=== PATIENT | male | born 1970 | race Caucasian/White ===

== ENCOUNTER 2019-09-03 17:42 | Emergency (ER) | payer OTHER ==
[2019-09-03 17:57] VITALS: BP 140/92; PULSE 80; O2SAT 98
[2019-09-03] MEDS ORDERED: XYLOCAINE 1% HCL 20 ML MDV IJ ONE (18:05)
[2019-09-03] MEDS ORDERED: Adacel Vial IM ONE ×2 (18:05→18:10)
[2019-09-03] MEDS ORDERED: XYLOCAINE 1% HCL 20 ML MDV ONE (18:10)
--- NOTE | 2019-09-03 18:17 | ERPHSYRPT ---
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 pt denies any other injury or accident. pt reports use of blood thinners. Triage Nursing Assessment: pt is aox3, ambulatory to cot with no difficulties, pupils perrl, afebrile, resps easy and non labored, cap refill < 3 seconds, radial pulses strong and equal, pt skin pink warm dry. laceration noted to the volar left distal forearm, skin is well approximated, minimal serious drainage noted at time of arrival pt with pressure to wound. no debris noted to wound bed. pt sensation, ROM intact. 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 pt denies any other injury or accident. pt reports use of blood thinners. no deep tendon injury Timing/Duration: today Severity: mild Associated Symptoms: denies symptoms Allergies/Adverse Reactions: Penicillins Allergy (Intermediate, Verified 07/31/12 16:27) Hives Home Medications: Aspirin EC 81 mg [Ecotrin 81 mg] 81 mg PO DAILY 09/03/19 [History] Clopidogrel Bisulfate [Clopidogrel] 75 mg PO DAILY 09/03/19 [History] Ergocalciferol (Vitamin D2) [Vitamin D2] 1 each PO DAILY 09/03/19 [History] Irbesartan 150 mg PO DAILY 09/03/19 [History] Lansoprazole [Prevacid] 15 mg PO DAILY 09/03/19 [History] Memantine HCl/Donepezil HCl [Namzaric 28 mg-10 mg Capsule] 0 mg PO UD 09/03/19 [ History] Rosuvastatin Calcium [Crestor] 20 mg PO DAILY 09/03/19 [History] Sertraline HCl 50 mg [Zoloft 50 mg Tablet] 50 mg PO DAILY 09/03/19 [History] Tizanidine HCl 4 mg PO DAILY 09/03/19 [History] lisinopriL [Lisinopril] 10 mg PO DAILY 09/03/19 [History] Hx Tetanus, Diphtheria Vaccination/Date Given: (unk) Hx Influenza Vaccination/Date Given: No Hx Pneumococcal Vaccination/Date Given: No Immunizations Up to Date: Yes Travel Risk - International Travel Have you traveled outside of the country in past 3 weeks: No Have you or anyone close to you been diagnosed with or: No Do your reside in a community with a known COVID-19 case?: Yes If Yes where:: [facility] - Coronavirus Screening Has patient experienced Coronavirus symptoms: No - Review of Systems Constitutional: No Symptoms Eyes: No Symptoms Ears, Nose, & Throat: No Symptoms Respiratory: No Symptoms Cardiac: No Symptoms Abdominal/Gastrointestinal: No Symptoms Genitourinary Symptoms: No Symptoms Skin: Other (5 cms laceration on left forearm) - Past Medical History Pertinent Past Medical History: Yes Neurological History: Stroke ENT History: No Pertinent History Cardiac History: Coronary Artery Disease, Hypertension Respiratory History: No Pertinent History Endocrine Medical History: No Pertinent History Musculoskeletal History: Other GI Medical History: No Pertinent History History: No Pertinent History Psycho-Social History: No Pertinent History Male Reproductive Disorders: No Pertinent History Other Medical History: FREQUENT TINITUS (WHEN ALL IS QUIET); HAS CTS TO RIGHT HAND. CURRENTLY CAN'T CARRY ANYTHING HEAVY LEFT HANDED AND IF HE DOES FLEXOR TENDONS START HURTING TO INDEX, RING, AND MIDDLE FINGERS. WAKES AT NOC WITH LEFT HAND NUMBNESS (MOSTLY LITTLE, RING, AND MIDDLE FINGERS). CURRENTLY HE IS UNABLE TO LIFT HIS 100# SPECIAL NEEDS DAUGHTER, CAN'T HOLD STRAP OF LEASH FOR DOG WITH LEFT HAND BUT CAN WITH RIGHT HAND. RUNNING A CHAINSAW CAUSES EXCRUCIATING PAIN (DUE TO VIBRATION). DIFFICULTY WITH GRIPPING TASKS/ ACTIVITIES IT CAUSES PAIN AND TINGLING/NUMBNESS. ALSO PALM OF LEFT HAND IS EXTREMELY HYPERSENSITIVE - Past Surgical History Past Surgical History: No Neuro Surgical History: No Pertinent History Cardiac: No Pertinent History Respiratory: No Pertinent History Gastrointestinal: No Pertinent History Genitourinary: No Pertinent History Musculoskeletal: No Pertinent History Male Surgical History: No Pertinent History - Social History Smoking Status: Never smoker Drug Use: none Patient Lives Alone: No - Nursing Vital Signs Nursing Vital Signs: Initial Vital Signs Temperature 98 F 09/03/19 17:48 Pulse Rate 80 09/03/19 17:48 Respiratory Rate 18 09/03/19 17:48 Blood Pressure 140/92 09/03/19 17:48 O2 Sat by Pulse Oximetry 98 09/03/19 17:48 Pain Scale Pain Intensity 0 - Physical Exam General Appearance: no apparent distress Eye Exam: PERRL/EOMI Ears, Nose, Throat Exam: normal ENT inspection Neck Exam: normal inspection Extremity Exam: normal inspection Neurologic Exam: alert, oriented x 3 Skin Exam: normal color, laceration (5 cms on mid forearm ) SpO2: 98 Procedures - Laceration/Wound Repair Left Anterior Volar Other Wound Location: Left (forearm) Wound Length (cm): 5 Wound's Depth, Shape: superficial Wound Explored: clean Irrigated: Yes Hibiclens Prep: Yes Anesthesia: local, 1% Lidocaine Volume Anesthetic (ccs): 7 Wound Debrided: minimal Wound Repaired With: sutures Suture Size/Type: 4-0, nylon Number of Sutures: 5 Layer Closure?: No Sterile Dressing Applied?: Yes - Course Nursing assessment & vital signs reviewed: Yes Ordered Tests: Medication Summary Discontinued Medications Generic Name Dose Route Start Last Admin Trade Name Freq PRN Reason Stop Dose Admin Diphtheria/Tetanus/Acell Pertussis 0.5 ml 09/03/19 18:05 Adacel Vial IM 09/03/19 18:06 .ONCE ONE Lidocaine HCl 10 ml 09/03/19 18:05 Xylocaine 1% Hcl 20 Ml Mdv IJ 09/03/19 18:06 STAT ONE - Progress Progress: improved Counseled pt/family regarding: diagnosis, need for follow-up - Departure Departure Disposition: Home Clinical Impression: Laceration of left forearm without complication Qualifiers: Encounter type: initial encounter Qualified Code(s): S51.812A - Laceration without foreign body of left forearm, initial encounter Condition: Stable Critical Care Time: No Referrals: NIKOLAI OLMEDO DO [Primary Care Provider] - Instructions: Laceration Repair With Stitches (DC), Wound Care (DC) Additional Instructions: sutures removal in 10 days, wound check in 3 days. DANIALJUANJO ALONSO was seen on 09/03/19 n the Emergency Room. At that time you were treated for an emergent condition, during your visit Laboratory, Radiology and/or other procedures may have been ordered. It is very important that you follow-up with your Primary Care Physician NIKOLAI OLMEDO DO within the next 24-48 hours to review your Emergency Room visit and the final results of testing that was ordered. Some test results such as Urine Cultures, Blood Cultures, and other cultures if ordered will not be finalized for 24-48 hours. If you do not have a Primary Care Provider please call the medical records department at [phone] ext [phone] to obtain a copy of your results or you may sign into our patient portal to obtain these results by visiting us @ [email or web address] and completing the following steps: 1. Click on the Patient Portal link 2. Click the Patient Self Enrollment Link to complete the enrollment form and entering your 3. Once the enrollment form is completed you will receive an email with a temporary ID and password at the email address you provided. 4. Next choose a user name and password. Your user name must be at least 4 characters long and your password must be at least 4 characters long. 5. Choose a security question from the list and provide your answer to the question. If you already have signed into the Health Portal you may access your Health Care Information 15/12 by the following steps: 1. Login to our website @ [email or web address] 2. Enter your original user name and password. FAQS The [facility] Health Portal is an online tool that contains your Lab Results, Radiology Reports, Visit History, Discharge Instructions and Health Summary Lab and Radiology Results will not be available for 72 hours on the portal. The Portal is a secure site, passwords are encryted and URLs are re-written so they cannot be copied and pasted. You and authorized family members are the only ones who can access your Portal. Also there is a timeout feature that protects your information if you leave the Portal page open. If you have technical difficulty please use the Contact Us link on the page this will allow you to submit any questions you have regarding the Portal or you may contact the Medical Record Department at [phone] ext [phone].
== END 2019-09-03 18:23 | disposition home or self-care (01) ==
LOC: ED 17:42
DX: S51.812A Laceration without foreign body of left forearm, initial encounter (principal); Z79.899 Other long term (current) drug therapy
CPT/HCPCS: 12002; 90471; 90715; 96372; 99284

== ENCOUNTER 2020-11-04 19:53 | Emergency (ER) | payer OTHER ==
[2020-11-04] MEDS ORDERED: OXYCODONE-ACETAMINOPHEN 10-325 ONE ×2 (20:09→20:30)
[2020-11-04] MEDS ORDERED: OXYCODONE-ACETAMINOPHEN 10-325 PO STA ×2 (20:20→20:26)
--- NOTE | 2020-11-04 20:22 | ERPHSYRPT ---
- History of Present Illness Time Seen by Provider: 11/04/20 19:56 Source: patient Exam Limitations: no limitations Physician History: 58 years old male with history of hypertension, hyperlipidemia, previous strokes presented in the ER with chief complaint of left calf pain after he was pushing a 2000 pound tractor and felt a popping/snapping in the calf area followed by swelling and constant sharp shooting moderate intensity pain, worsening with ambulation/palpation and better with resting. No difficulty movements of the knee or ankle. Patient report he feels a golf ball in his calf. Not on any blood thinners. Method of Injury: other Occurred: just prior to arrival Quality: sharpness Severity of Pain-Max: moderate Severity of Pain-Current: moderate Lower Extremities Pain: leg: left Modifying Factors: Improves With: immobilization, rest. Worsens With: movement Associated Symptoms: snapping sensation, popping sensation Allergies/Adverse Reactions: Penicillins Allergy (Intermediate, Verified 11/04/20 19:57) Hives Home Medications: Clopidogrel Bisulfate [Clopidogrel] 75 mg PO DAILY 09/03/19 [History] Ergocalciferol (Vitamin D2) [Vitamin D2] 1 each PO DAILY 09/03/19 [History] Memantine HCl/Donepezil HCl [Namzaric 28 mg-10 mg Capsule] 0 mg PO UD 09/03/19 [History] Rosuvastatin Calcium [Crestor] 20 mg PO DAILY 09/03/19 [History] Sertraline HCl 50 mg [Zoloft 50 mg Tablet] 100 mg PO DAILY 09/03/19 [History] Tizanidine HCl 4 mg PO DAILY 09/03/19 [History] lisinopriL [Lisinopril] 10 mg PO DAILY 09/03/19 [History] Hx Tetanus, Diphtheria Vaccination/Date Given: (unk) Hx Influenza Vaccination/Date Given: No Hx Pneumococcal Vaccination/Date Given: No - Review of Systems Constitutional: No Symptoms Eyes: No Symptoms Ears, Nose, & Throat: No Symptoms Respiratory: No Symptoms Cardiac: No Symptoms Abdominal/Gastrointestinal: No Symptoms Genitourinary Symptoms: No Symptoms Musculoskeletal: Injury, Myalgias Skin: No Symptoms Neurological: No Symptoms Psychological: No Symptoms Endocrine: No Symptoms Hematologic/Lymphatic: No Symptoms Immunological/Allergic: No Symptoms - Past Medical History Pertinent Past Medical History: Yes Neurological History: Stroke ENT History: No Pertinent History Cardiac History: Coronary Artery Disease, Hypertension Respiratory History: No Pertinent History Endocrine Medical History: No Pertinent History Musculoskeletal History: Other GI Medical History: No Pertinent History History: No Pertinent History Psycho-Social History: No Pertinent History Male Reproductive Disorders: No Pertinent History Other Medical History: FREQUENT TINITUS (WHEN ALL IS QUIET); HAS CTS TO RIGHT HAND. CURRENTLY CAN'T CARRY ANYTHING HEAVY LEFT HANDED AND IF HE DOES FLEXOR TENDONS START HURTING TO INDEX, RING, AND MIDDLE FINGERS. WAKES AT NOC WITH LEFT HAND NUMBNESS (MOSTLY LITTLE, RING, AND MIDDLE FINGERS). CURRENTLY HE IS UNABLE TO LIFT HIS 100# SPECIAL NEEDS DAUGHTER, CAN'T HOLD STRAP OF LEASH FOR DOG WITH LEFT HAND BUT CAN WITH RIGHT HAND. RUNNING A CHAINSAW CAUSES EXCRUCIATING PAIN (DUE TO VIBRATION). DIFFICULTY WITH GRIPPING TASKS/ACTIVITIES IT CAUSES PAIN AND TINGLING/NUMBNESS. ALSO PALM OF LEFT HAND IS EXTREMELY HYPERSENSITIVE - Past Surgical History Past Surgical History: No Neuro Surgical History: No Pertinent History Cardiac: No Pertinent History Respiratory: No Pertinent History Gastrointestinal: No Pertinent History Genitourinary: No Pertinent History Musculoskeletal: No Pertinent History Male Surgical History: No Pertinent History - Social History Smoking Status: Never smoker Drug Use: none Patient Lives Alone: No - Physical Exam General Appearance: no apparent distress, alert Eyes, Ears, Nose, Throat Exam: normal ENT inspection Neck Exam: normal inspection, supple, full range of motion Cardiovascular/Respiratory Exam: normal breath sounds, regular rate/rhythm Hips Exam: bilateral: non-tender, normal inspection, normal range of motion, no evidence of injury Legs Exam: right leg: non-tender, normal inspection, left leg: pain, soft tissue tenderness, swelling (Mid calf swelling. Tender to palpation. Intact range of motion above and below and knee and ankle joint. Dorsalis pedis and posterior tibial well palpable. Cap refill less than 3 seconds), other (No bony tenderness), bilateral leg: normal range of motion, no evidence of injury Knees Exam: bilateral knee: non-tender, normal inspection, normal range of motion Ankle Exam: bilateral ankle: non-tender, normal inspection, normal range of motion, no evidence of injury Foot Exam: bilateral foot: non-tender, normal inspection, normal range of motion, no evidence of injury Neuro/Tendon Exam: normal sensation, normal motor functions Mental Status Exam: alert, oriented x 3, cooperative Skin Exam: normal color SpO2 Interpretation: normal SpO2: 96 O2 Delivery: Room Air Ordered Tests: Medication Summary Discontinued Medications Generic Name Dose Route Start Last Admin Trade Name Netta PRN Reason Stop Dose Admin Oxycodone/Acetaminophen Confirm 11/04/20 20:09 Oxycodone-Acetaminophen 10-325 Administered 11/04/20 20:10 Dose 1 tab .ROUTE .STK-MED ONE - Progress Progress: improved, pain not gone completely Progress Note: 11/04/20 20:20 He is given pain medication for symptomatic relief. I believe patient has gastrocnemius tendon rupture. Intact distal neurovascular. No bony tenderness. I do not have ultrasound services available, recommended transfer to facility with ultrasound services but patient does not want to go there. He is advised to follow-up with orthopedic surgery for reevaluation and possible surgical intervention. Recommending getting off of left leg as much possible. Discussed signs symptoms of worsening needing return to ER which he seems understanding Counseled pt/family regarding: diagnosis, need for follow-up - Departure Departure Disposition: Home Clinical Impression: Rupture of left gastrocnemius tendon Qualifiers: Encounter type: initial encounter Qualified Code(s): S86.112A - Strain of other muscle(s) and tendon(s) of posterior muscle group at lower leg level, left leg, initial encounter Condition: Stable Critical Care Time: No Referrals: NIKOLAI OLMEDO DO [Primary Care Provider] - Follow Up with PCP/3 days ESTHER TAMEZ [NON-STAFF PHY W/O PRIVILEGES] - (Call tomorrow for appointment) Instructions: Lower Extremity Muscle Strain (DC) Additional Instructions: Take pain medications as needed. Follow-up with [facility] clinic tomorrow at [place] for walk-in after 8 AM. Get off of your left lower extremity as much as possible. Apply ice. Keep it elevated. Return to ER if has increasing swelling in the calf, intractable pain, bluish discoloration of the toes, numbness tingling in the foot etc. Prescriptions: Hydrocodone/Acetaminophen [Hydrocodone-Acetamin 7.5-325] 1 each PO Q6HPRN PRN 3 Days #12 tablet MDD 4 PRN Reason: Pain
[2020-11-04 20:42] VITALS: BP 148/68; PULSE 71; O2SAT 97
== END 2020-11-04 20:44 | disposition home or self-care (01) ==
LOC: ED 19:53
DX: S86.112A Strain of other muscle(s) and tendon(s) of posterior muscle group at lower leg level, left leg, initial encounter (principal); I10 Essential (primary) hypertension; E78.5 Hyperlipidemia, unspecified; M79.662 Pain in left lower leg; X50.0XXA Overexertion from strenuous movement or load, initial encounter; Y93.9 Activity, unspecified; Z79.899 Other long term (current) drug therapy
CPT/HCPCS: 99283; A9270-GY

== ENCOUNTER 2020-11-19 17:32 | Emergency (ER) | payer OTHER ==
--- NOTE | 2020-11-19 17:52 | ERPHSYRPT ---
- History of Present Illness Time Seen by Provider: 11/19/20 17:51 Source: patient, family Exam Limitations: no limitations Physician History: This is a 50-year-old white male patient who has had a history of strokes on 2 different occasions in 2018. Patient, the patient has a history of coronary artery disease, hypertension and is taking Plavix. His only complaint at that time was scalp pain. The same symptoms began yesterday afternoon. He denies loss or change in vision. He denies speech changes. He is moving all his extremities per his report. He has not noticed any change in strength. Timing/Duration: yesterday Quality: burning Head Pain Location: occipital Severity of Pain-Max: mild Severity of Pain-Current: mild Recent Head Trauma: no recent headache/trauma Modifying Factors: Improves With: other Associated Symptoms: denies symptoms Allergies/Adverse Reactions: Penicillins Allergy (Intermediate, Verified 11/04/20 19:57) Hives Home Medications: Ergocalciferol (Vitamin D2) [Vitamin D2] 1 each PO DAILY 09/03/19 [History] Memantine HCl/Donepezil HCl [Namzaric 28 mg-10 mg Capsule] 0 mg PO UD 09/03/19 [History] Rosuvastatin Calcium [Crestor] 20 mg PO DAILY 09/03/19 [History] Sertraline HCl 50 mg [Zoloft 50 mg Tablet] 100 mg PO DAILY 09/03/19 [History] Tizanidine HCl 4 mg PO DAILY 09/03/19 [History] lisinopriL [Lisinopril] 10 mg PO DAILY 09/03/19 [History] Azelastine HCl 11/19/20 [History] Clopidogrel Bisulfate 75 mg [PLAVIX 75 MG Tablet] 75 mg PO DAILY 11/19/20 [History] Hx Tetanus, Diphtheria Vaccination/Date Given: (unk) Hx Influenza Vaccination/Date Given: No Hx Pneumococcal Vaccination/Date Given: No Travel Risk - International Travel Have you traveled outside of the country in past 3 weeks: No - Coronavirus Screening Are you exhibiting any of the following symptoms?: No Close contact with a COVID-19 positive Pt in past 14-21 Days: No - Vaccine Status Have you recieved a Covid-19 vaccination: Yes Management Scientist: Moderna - Vaccination Dates Date of 2cond Vaccination (if applicable): 08/24/20 - Review of Systems Constitutional: No Symptoms Eyes: No Symptoms Ears, Nose, & Throat: No Symptoms Respiratory: No Symptoms Cardiac: No Symptoms Abdominal/Gastrointestinal: No Symptoms Genitourinary Symptoms: No Symptoms Musculoskeletal: No Symptoms Skin: Other (Burning sensation posterior scalp) Neurological: No Symptoms Psychological: No Symptoms Endocrine: No Symptoms Hematologic/Lymphatic: No Symptoms Immunological/Allergic: No Symptoms All Other Systems: Reviewed and Negative - Past Medical History Pertinent Past Medical History: Yes Neurological History: Stroke ENT History: No Pertinent History Cardiac History: Coronary Artery Disease, Hypertension Respiratory History: No Pertinent History Endocrine Medical History: No Pertinent History Musculoskeletal History: Other GI Medical History: No Pertinent History History: No Pertinent History Psycho-Social History: No Pertinent History Male Reproductive Disorders: No Pertinent History Other Medical History: FREQUENT TINITUS (WHEN ALL IS QUIET); HAS CTS TO RIGHT HAND. CURRENTLY CAN'T CARRY ANYTHING HEAVY LEFT HANDED AND IF HE DOES FLEXOR TENDONS START HURTING TO INDEX, RING, AND MIDDLE FINGERS. WAKES AT NOC WITH LEFT HAND NUMBNESS (MOSTLY LITTLE, RING, AND MIDDLE FINGERS). CURRENTLY HE IS UNABLE TO LIFT HIS 100# SPECIAL NEEDS DAUGHTER, CAN'T HOLD STRAP OF LEASH FOR DOG WITH LEFT HAND BUT CAN WITH RIGHT HAND. RUNNING A CHAINSAW CAUSES EXCRUCIATING PAIN (DUE TO VIBRATION). DIFFICULTY WITH GRIPPING TASKS/ACTIVITIES IT CAUSES PAIN AND TINGLING/NUMBNESS. ALSO PALM OF LEFT HAND IS EXTREMELY HYPERSENSITIVE - Past Surgical History Past Surgical History: No Neuro Surgical History: No Pertinent History Cardiac: No Pertinent History Respiratory: No Pertinent History Gastrointestinal: No Pertinent History Genitourinary: No Pertinent History Musculoskeletal: No Pertinent History Male Surgical History: No Pertinent History - Social History Smoking Status: Never smoker Exposure to second hand smoke: No Drug Use: none Patient Lives Alone: No - Nursing Vital Signs Nursing Vital Signs: Initial Vital Signs Temperature 97.8 F 11/19/20 17:58 Pulse Rate 63 11/19/20 17:58 Respiratory Rate 20 11/19/20 17:58 Blood Pressure 148/80 11/19/20 17:58 O2 Sat by Pulse Oximetry 97 11/19/20 17:58 Pain Scale Pain Intensity 0 - Physical Exam General Appearance: no apparent distress, alert, anxiety Eye Exam: PERRL/EOMI, eyes nml inspection Ears, Nose, Throat Exam: normal ENT inspection, moist mucous membranes Neck Exam: normal inspection, non-tender, supple, full range of motion Respiratory Exam: normal breath sounds, lungs clear, airway intact, No chest tenderness, No respiratory distress Cardiovascular Exam: regular rate/rhythm, normal heart sounds, normal peripheral pulses Gastrointestinal/Abdominal Exam: No tenderness Extremity Exam: normal inspection, normal range of motion, pelvis stable Mental Status Exam: alert, oriented x 3, cooperative ssis etl developer Exam: normal hearing, normal speech, PERRL, tongue midline, No facial asymmetry, No facial droop, No facial paresthesias Coordination/Gait Exam: normal finger to nose, normal gait, normal cerebellar function Motor/Sensory Exam: no motor deficit, no sensory deficit, no pronator drift Skin Exam: normal color, warm, dry Lymphatic Exam: No adenopathy SpO2 Interpretation: normal O2 Delivery: Room Air - Course Nursing assessment & vital signs reviewed: Yes Ordered Tests: Active Orders 24 hr Category Date Time Status HEAD WITHOUT CONTRAST [CT] Stat Exams 11/19/20 18:41 Taken - Progress Progress: unchanged Air Movement: good Progress Note: 11/19/20 19:12 CAT scan of the head without contrast shows small old infarct right basal ganglia remaining head is negative. Blood Culture(s) Obtained: No Antibiotics given: No Counseled pt/family regarding: diagnosis, need for follow-up, rad results - Departure Departure Disposition: Home Clinical Impression: Scalp tenderness Condition: Stable Critical Care Time: No Referrals: NIKOLAI OLMEDO DO [Primary Care Provider] - Additional Instructions: Take your medication as prescribed. Follow-up with your primary care physician and neurologist for further evaluation and management.
[2020-11-19] MEDS ORDERED: NORCO 5/325 MG PO ONE (19:45)
[2020-11-19] MEDS ORDERED: NORCO 5/325 MG ONE (19:48)
[2020-11-19 19:56] VITALS: BP 121/82; PULSE 58; O2SAT 97
--- NOTE | 2020-11-20 08:42 | XRAY ---
Indication: Headache. Posterior pain. History stroke. Blood thinner therapy. Multiple contiguous axial images obtained through the head without contrast. Comparison: None. Right basal ganglia demonstrates small focus old infarct. No acute intracranial hemorrhage, abnormal extra-axial fluid collection, or mass effect. Fourth ventricle is midline without hydrocephalus. Barboza-white matter differentiation preserved. Bony calvarium intact. Visualized paranasal sinuses and mastoid air cells are clear. 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 No acute intracranial abnormalities.
== END 2020-11-19 19:53 | disposition home or self-care (01) ==
LOC: ED 17:32
DX: L98.9 Disorder of the skin and subcutaneous tissue, unspecified (principal); I25.10 Atherosclerotic heart disease of native coronary artery without angina pectoris; I10 Essential (primary) hypertension
CPT/HCPCS: 70450; 99284; A9270-GY

== ENCOUNTER 2023-05-08 15:05 | Emergency (ER) | payer OTHER ==
[2023-05-08] MEDS ORDERED: TORAdol 30 mg Injection IM ONE (15:15)
[2023-05-08 15:24] VITALS: TEMP 97.2
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
--- NOTE | 2023-05-08 16:31 | XRAY ---
Indication: Right costovertebral angle pain. Multiple contiguous axial images obtained through the abdomen and pelvis without contrast using renal stone protocol. Comparison: None Lung bases demonstrate 6 mm right middle lobe irregular noncalcified nodule. No infiltrate or effusion. Heart not enlarged. There is a 7-8 mm right mid ureter calculus, approximately at L5-S1 level. Proximal right ureter is mildly prominent along with minimal hydronephrosis consistent with partial obstructive uropathy. Additional right renal punctate calculus. No calculus or evidence for obstructive uropathy on the left. Noncontrasted stomach and bowel loops appear nonobstructed with normal appendix. Spleen is enlarged measuring 15 cm. No free fluid/air. Remaining liver, gallbladder, pancreas, spleen, adrenal glands, kidneys, ureters, bladder, and aorta are unremarkable for noncontrast exam. Minimal aortoiliac calcifications without AAA. Osseous structures intact with mild degenerative changes throughout the thoracolumbar spine. Impression: 1. 7-8mm right mid ureter calculus producing partial obstructive uropathy as detailed. Additional right renal punctate calculus. 2. Subcentimeter indeterminate right middle lobe noncalcified nodule. Outside comparison studies recommended if available. 3. Incidental splenomegaly, multilevel degenerative spondylosis, and arteriosclerotic disease.
[2023-05-08] MEDS ORDERED: Sodium Chloride 0.9% 1000 ML 1,000 ML IV STA (16:32)
[2023-05-08] MEDS ORDERED: Sodium Chloride 0.9% 1000 ML 1,000 ML ONE (16:35)
[2023-05-08 16:36] LABS: Absolute Neutrophil Ct (ANC) 2.97 x10^3/uL (1.4-6.9); BASOPHIL % 0.2 % (0.0-0.4); Basophil (Absolute #) 0.01 x10^3/uL (0-0.4); Eosinophil % 3.3 % (0.00-5.0); Eosinophil (Absolute #) 0.16 x10^3/uL (0-0.5); Hematocrit 40.6 % (42-50); Hemoglobin 13.8 g/dL (12.5-18.0); IMMATURE GRAN # 0.01 x10^3u/L (0.00-0.03); IMMATURE GRAN % 0.2 % (0.00-0.4); Lymphocyte (Absolute #) 1.35 x10^3/uL (1.0-4.6); Lymphocytes % 28.1 % (24.0-44.0); Mean Cell Volume 84.6 fL (78-100); Mean Corpuscular Hemoglobin 28.8 pg (26-32); Mean Platelet Volume 10.5 fL (7.5-11.0); Monocytes % 6.3 % (0.0-12.0); Neutrophil % 61.9 % (36.0-66.0); Platelet Count 142 x10^3/uL (150-450); Red Cell Distribution Width 12.6 % (11.5-14.0); White Blood Count 4.8 x10^3/uL (4.0-10.5)
[2023-05-08 16:42] LABS: ALBUMIN 4.7 g/dL (3.5-5.0); ANION GAP 13.5 MEQ/L (5-15); BILIRUBIN,TOTAL 0.6 mg/dL (0.2-1.3); Calcium 9.4 mg/dL (8.4-10.2); Creatinine 1 1.17 mg/dL (0.66-1.25); EST GLOMERULAR FILTRATION RATE 74.1 ML/MIN; Potassium 3.6 mmol/L (3.5-5.1); Total Protein 7.6 g/dL (6.3-8.2)
[2023-05-08 17:07] LABS: Appearance Clear (Clear); Bacteria None Seen /HPF (None Seen); Bilirubin Negative (Negative); Blood Large (Negative); Epithelial Cells None Seen /HPF (None Seen); Glucose, Urine Negative (Negative); Hyaline Casts NONE SEEN /LPF (0-2); Ketones Negative (Negative); Leukocyte Esterase Negative (Negative); Nitrite Negative (Negative); Protein,Urine Dip 30 (Negative); RBC >100 /HPF (0-5); Specific Gravity 1.015 (1.005-1.030); Urobilinogen 0.2 mg/dL (0.2)
[2023-05-08 17:09] LABS: ADD URINE CULTURE? YES (NO)
[2023-05-08 19:18] VITALS: BP 123/76; PULSE 64; RESP 17
[2023-05-08 19:35] VITALS: O2SAT 96
== END 2023-05-08 19:50 | disposition short-term general hospital (02) ==
LOC: ED 15:05
DX: N13.2 Hydronephrosis with renal and ureteral calculous obstruction (principal); R10.9 Unspecified abdominal pain; E78.5 Hyperlipidemia, unspecified; I10 Essential (primary) hypertension; Z79.02 Long term (current) use of antithrombotics/antiplatelets; Z79.899 Other long term (current) drug therapy
CPT/HCPCS: 36415; 74176; 80053; 81001; 85025; 87086; 99284

== ENCOUNTER 2024-10-02 20:56 | Emergency (ER) | payer OTHER ==
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
[2024-10-02 21:21] VITALS: TEMP 97.9; O2SAT 97
[2024-10-02] MEDS ORDERED: solu-MEDROL ONE (21:29)
[2024-10-02] MEDS ORDERED: Sterile H2O 10 ml IJ ONE (21:29)
[2024-10-02] MEDS ORDERED: BENADRYL 25 MG CAPSULE ONE (21:29)
[2024-10-02] MEDS ORDERED: Pepcid 20 MG VIAL IV ONE ×2 (21:29→21:34)
[2024-10-02] MEDS: BENADRYL 25 MG CAPSULE PO ONE (21:31)
[2024-10-02] MEDS: solu-MEDROL 125 MG, Sterile H2O 10 ml 2 ML IV ONE (21:31)
[2024-10-02] MEDS: Pepcid 20 MG VIAL IV ONE (21:34)
[2024-10-02 22:41] VITALS: BP 128/80; PULSE 60; RESP 18
== END 2024-10-02 22:47 | disposition home or self-care (01) ==
LOC: ED 20:56
DX: T63.461A Toxic effect of venom of wasps, accidental (unintentional), initial encounter (principal); R60.0 Localized edema; E78.5 Hyperlipidemia, unspecified; I10 Essential (primary) hypertension; Z79.52 Long term (current) use of systemic steroids; Z79.02 Long term (current) use of antithrombotics/antiplatelets; Z79.899 Other long term (current) drug therapy
CPT/HCPCS: 96374; 96375; 99283; 99284; J2919; A9270-GY